=== PATIENT | male | born 2000 | race Caucasian/White ===

== ENCOUNTER 2020-11-21 13:57 | Outpatient (REF) | payer OTHER, SELFPAY ==
[2020-11-21 17:01] LABS: CT PCR NOT DETECTED (Not Detect.); NG PCR NOT DETECTED (Not Detect.)
[2020-11-22 08:12] LABS: Syphilis Screen Nonreactive (Nonreactive)
[2020-11-24 08:41] LABS: TS Negative Control Passed; TS Panel A 0; TS Panel B 0; TS Positive Control Passed; TSpotTB Negative (SeeBelow)
== END 2020-11-21 13:58 | disposition home or self-care (01) ==
LOC: HO.LAB 13:57
PROVIDERS: Visit Provider Internal Medicine Infectious Disease
DX: Z00.00 Encounter for general adult medical examination without abnormal findings (principal); Z11.3 Encounter for screening for infections with a predominantly sexual mode of transmission; Z11.1 Encounter for screening for respiratory tuberculosis
CPT/HCPCS: 86481; 86780; 86787; 87491; 87591

== ENCOUNTER 2024-01-18 13:28 | Emergency (ER) | payer SELFPAY ==
--- NOTE | ~2024-01-18 | XR_ITS ---
EXAMINATION: XR FINGER, LEFT CLINICAL INFORMATION: Third digit laceration. COMPARISON: None available. TECHNIQUE: Two views of the left long finger. PA view of the left hand. FINDINGS: There is soft tissue deformity involving the distal aspect of the third digit. There is nondisplaced linear lucency distal tuft distal phalanx of the third digit. Associated soft tissue swelling. Joint spaces are maintained. XR/XR finger LT min 2V IMPRESSION: Possible nondisplaced fracture involving distal tuft distal phalanx of the third digit. Electronically signed by: Carlito Ward MD 01/18/2024 03:38 PM EST RP
[2024-01-18 13:31] VITALS: BP 105/73; PULSE 77; RESP 16; TEMP 37.1; O2SAT 100; BMI 23.0
--- NOTE | 2024-01-18 13:36 | ED.EXTPRO ---
HPI - Extremity Problem General Chief complaint: Extremity Injury, Upper Stated complaint: Finger lac Time Seen by Provider: 01/18/24 14:15 Source: patient Mode of arrival: ambulatory Limitations: no limitations History of Present Illness ED Provider: [facility] Narrative: Patient is a 23-year-old right hand dominant male presenting with laceration to left 3rd finger. States he was using an electric hand leather trimmer prior to arrival when he cut his hand accidentally. Believes he cut it through the nail as well. Denies numbness or tingling. Unknown last Tdap. Related Data Previous Rx's ?Medication ?Instructions ?Recorded amoxicillin 875 mg-potassium 1 tab PO BID #13 tabs 01/18/24 clavulanate 125 mg tablet Allergies Allergy/AdvReac Type Severity Reaction Status Date / Time No Known Allergies Allergy Verified 01/18/24 13:33 Review of Systems Review of Systems: as per hpi Yes all other systems are reviewed and are negative Constitutional: Constitutional: Reports as per [facility] Social History Social History Advance Directives: No Advance Directives Information Provided: Yes Do you have a plan to hurt others: No Plan Physical Exam Vital Signs: Vital Signs: Last Vital Signs Temp 98.7 F 01/18/24 16:06 Pulse 77 01/18/24 16:06 Resp 16 01/18/24 16:06 BP 105/73 01/18/24 16:06 Pulse Ox 100 01/18/24 16:06 O2 Del Method Room Air 01/18/24 16:06 BMI result Body Mass Index 23.0 Vital signs have been reviewed and appear to be correct. Blood pressure normal. Heart rate normal. Respiratory rate normal. Temperature normal. Oxygen saturation normal. Const: General: cooperative, healthy appearing and no acute distress Orientation/consciousness: oriented to person, oriented to place, oriented to time and patient oriented x3 Limitations: no limitations HEENT: Head: Yes normocephalic and Yes atraumatic Ears: external ears normal General nose exam: Normal external nose present Face and sinus: Yes face symmetric Mouth: oropharynx normal and moist mucous membranes Throat: Yes uvula midline Eyes: Pupils: Equal, round and reactive pupils present Neck: Neck: Yes normal visual inspection and Yes supple Resp: Effort & Inspection: normal respiratory effort and able to speak in complete sentences Auscultation: clear to auscultation bilaterally Cardio: Rate: regular rate Rhythm: regular rhythm Heart sounds: S1 normal heart sound present and S2 normal heart sound present GI: Palpation (GI): Soft to palpation and nontender Auscultation: normoactive bowel sounds : General: Yes no CVA tenderness Back/Spine/Pelvis: Back: no CVA tenderness Skin: General skin exam: elasticity normal and turgor normal Neuro: General: oriented to person, oriented to place, oriented to time, patient oriented x3, moves all extremities, no focal motor deficits and CN's II-XI intact bilaterally Cranial nerves: Yes Equal, round and reactive pupils present Cognition (Neuro): normal cognition Extrem: General: Yes full ROM, Yes no pedal edema and Yes no calf tenderness Left upper extremity: hand Details: normal capillary refill, neuromotor exam normal, neurosensory exam normal, tendon exam normal, normal ROM of fingers and laceration 3rd digit radial aspect distal Details: linear and involving subcutaneous tissue (and lateral edge of nail) Psych: Mental Status: mental status grossly normal Affect: normal affect Thought process: Normal thought process present Course Course Course Narrative: RME: 23-year-old male presents to ED for left index finger laceration caused by [place] while cutting trees. Patient has unknown last Tdap. Patient to be evaluated by [facility]. Medications Administered Discontinued Medications Generic Name Dose Route Start Last Admin Trade Name Silvanoq PRN Reason Stop Dose Admin Amoxicillin/Clavulanate Potassium 875 mg 01/18/24 15:50 01/18/24 16:06 Amoxicillin/Potassium Clav 875 Mg Tablet PO 01/18/24 15:51 875 mg ONCE ONE Administration Bacitracin 1 appl 01/18/24 14:16 01/18/24 14:34 Bacitracin Oint 0.9 Gm Packet TOPICAL 01/18/24 14:17 1 appl ONCE ONE Administration Protocol Diphtheria/Tetanus/Acell Pertussis 0.5 ml 01/18/24 14:16 01/18/24 14:34 Diphth,Pertus(Acell),Tet Adult 0.5 Ml Syringe IM 01/18/24 14:17 0.5 ml .ONCE ONE Administration Lidocaine HCl 5 ml 01/18/24 14:16 01/18/24 14:34 Lidocaine Hcl 1 % Mpf 5 Ml Vial INFILTRATI 01/18/24 14:17 5 ml ONCE ONE Administration Medical Decision Making Medical Decision Making MDM Narrative: Patient is a 23-year-old right hand dominant male presenting with laceration to left 3rd finger. On exam patient is awake, A+Ox3, VS WNL, afebrile, normal neurological exam without focal deficits, physical exam findings as above. Given reported symptoms and physical exam findings, initial differential includes laceration, nail bed injury, open fracture. Tdap updated in ED today. X-ray notable for nondisplaced fracture to distal tuft. My interpretation is in agreement with the radiologist's interpretation. Laceration repaired as per procedure note. Will treat open fracture with antibiotics. Follow up with orthopedics. Wound care instructions and return precautions discussed at bedside. Return for suture removal. Patient verbalized understanding of and agreement with plan. Differential Diagnosis Differential Diagnoses: The differential diagnosis associated with the presentation includes As per MDM Independent Interpretation I performed an independent interpretation of an: Plain X-Ray Interpretation: Nondisplaced fracture distal tuft of left foot third finger Radiology Impression Discussion of test interpretation with radiology: I have reviewed the radiologist's reading. Radiologist Impression: FINDINGS: There is soft tissue deformity involving the distal aspect of the third digit. There is nondisplaced linear lucency distal tuft distal phalanx of the third digit. Associated soft tissue swelling. Joint spaces are maintained. External Record Review External record reviewed: Inpatient record, Office record and Outpatient record Prescription Management I considered prescription management with: Antibiotic Procedures Laceration Laceration 1: Site: hand Side (If applicable): left Size (cm): 1 Description: linear Depth: simple, single layer (involving nail) Local Anesthetic: lidocaine 1% Amount of anesthesia used (mL): 3 Pre-repair: wound explored, irrigated extensively and deep structures intact Skin layer closed with: other (prolene) Size (cm): 5-0 Number of sutures: 6 Technique: simple, interrupted Discharge Plan Discharge Clinical Impression: Laceration of finger of left hand with damage to nail Open fracture of phalanx of digit of hand Qualifiers: Encounter type: initial encounter Qualified Code(s): S62.609B - Fracture of unspecified phalanx of unspecified finger, initial encounter for open fracture Patient Disposition: Home, Self-Care Instructions: Care For Your Stitches (DC), Laceration (DC), Finger Fracture (ED), Splint Care (ED), Stitches Removal (ED) Additional Instructions: You have been evaluated in the emergency department today for a laceration to your finger. Your x-ray showed a small fracture to the distal tip of your finger. Your laceration was repaired in the emergency department with 6 sutures. Please keep the area surrounding the laceration clean and dry and keep dressing in place for the next 24 hours. After that please change the dressing and assess the wound daily. You are being treated with a course of antibiotics, please complete the full course as prescribed. Do not submerge your hand in water until the stitches have been removed in the wound has fully healed (no baths, dishwashing, swimming, hot tubs, etc. and especially no outdoor water). Keep the area out of direct sunlight for the next 6 months to help prevent scarring. You should have the sutures removed in 7-10 days. Follow up with Dr. Mondragon, the hand specialist. If you develop fever, redness, swelling at the site of your laceration, or thick yellow drainage please come back to the ER for a wound check. Prescriptions: New amoxicillin-pot clavulanate 875-125 mg tablet 1 tab PO BID Qty: 13 0RF Referrals: Ailin Mondragon MD [Physician] - Stand Alone Forms: Work/School Release Interventions: ED Discharge Assessment Last Done: 01/18/24 16:06 Discharge Date/Time: 01/18/24 16:06 Print Language: Barb[place]
[2024-01-18] MEDS: Lidocaine HCl 1 % MPF 5 ML VIAL INFILTRATI (14:34)
[2024-01-18] MEDS: Diphth,Pertus(ACell),Tet Adult 0.5 ML SYRINGE IM (14:34)
[2024-01-18] MEDS: Bacitracin Oint 0.9 GM PACKET 1 APPL TOPICAL (14:34)
[2024-01-18 16:06] VITALS: BP 105/73; PULSE 77; RESP 16; TEMP 37.1; O2SAT 100
[2024-01-18] MEDS: Amoxicillin/Potassium Clav 875 MG TABLET PO (16:06)
== END 2024-01-18 16:06 | disposition home or self-care (01) ==
PROVIDERS: Emergency Provider Emergency Medicine
DX: S61.213A Laceration without foreign body of left middle finger without damage to nail, initial encounter (principal); S62.603A Fracture of unspecified phalanx of left middle finger, initial encounter for closed fracture; M79.642 Pain in left hand; W29.3XXA Contact with powered garden and outdoor hand tools and machinery, initial encounter; Y93.89 Activity, other specified; Y92.89 Other specified places as the place of occurrence of the external cause; Y99.8 Other external cause status; Z23 Encounter for immunization
CPT/HCPCS: 12001; 73140; 90471; 90715; 99282; 99284; J2003